=== PATIENT | male | born 1940 | race Caucasian/White ===

== ENCOUNTER 2025-04-02 16:49 | Emergency (ER) | payer MEDICARE, MEDICAID, SELFPAY ==
[2025-04-02] VITALS (12 sets, daily range): BP systolic 83–163; BP diastolic 57–91; PULSE 68; O2SAT 94–98; BMI 23.0
--- NOTE | 2025-04-02 16:54 | CT_ITS ---
The [address] [address] Patient Name: SHIRIN QUINONES MRN: [id number] date: 1940 Sex: M Assigned Patient Location: ED.MAIN Current Patient Location: ED.MAIN Accession/Order Number: [id number] Exam Date: 04/02/2025 17:05 Report Date: 04/02/2025 17:49 At the request of: ODNALD GOMEZ MD Procedure: CT cervical spine wo con CT head/brain wo con, CT facial bones wo con, CT cervical spine wo con 04/02/2025 5:27 PM SIGNS AND SYMPTOMS: Fall with laceration to chin, bleeding from right ear TECHNIQUE:Multi-detector CT axial slices of the brain, facial bones, and cervical spine were obtained without IV contrast. Helical,sagittal, coronal, and 3-D reconstructions of the facial bones and cervical spine were performed. CT was performed with one or more of the following dose reduction techniques: Automated exposure control, adjustment of the mA and/or kV according to patient size, or use of iterative reconstruction technique. COMPARISON: 06/25/2022 FINDINGS: Noncontrast head CT: There is no shift of the midline structures, acute intracranial bleeding, mass effects, or evidence of acute ischemia. Atherosclerotic changes are noted in the intracranial segments of the internal carotid arteries. There is diffuse age-related cortical atrophy. Periventricular white matter hypoattenuation is noted. 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 Gliosis and encephalomalacia is noted at the base of the left temporal lobe. The ventricular system is normal in size. The brainstem and the cerebellum are unremarkable. The visualized intraorbital contents and the infratemporal soft tissues show no acute abnormality. The osseous structures in the skull base and the calvarium show no abnormality. CT FACIAL BONES: Fracture: There is a minimally displaced intra-articular fracture of the ramus of the right mandibular condyle. Tiny fracture fragments are noted separate from the anterior margin of the bony portion of the external auditory canal laterally. Blood or cerumen opacifying the bony and cartilaginous portions of the right external auditory canal. Paranasal sinuses and mastoids: Mucosal thickening is noted in the right maxillary sinus, within the ethmoid air cells, and to a lesser extent the maxillary sinuses. Soft tissue swelling: Mild soft tissue swelling is noted along the chin. Globes: Intact. Upper aerodigestive tract: Within normal limits. Joints: Intact. Temporal mandibular joints: Intact. Infratemporal fossa: Within normal limits. Cervical spine: There is preservation of the vertebral body heights. There is mild intervertebral disc height loss at C5-C6, C6-C7, and C7-T1. There is a remote appearing type II fracture of the odontoid. No fractures or dislocations are seen. The alignment of the cervical spine is normal. The craniocervical junction is within normal limits. The prevertebral soft tissues are within normal limits. Atherosclerotic changes are noted in the carotid bifurcations. The paraspinous soft tissues are within normal limits. The lung apices are unremarkable. CT/CT facial bones wo con IMPRESSION: No acute cranial pathology. Chronic age-related neurodegenerative changes are noted as above. There is a minimally displaced intra-articular fracture of the ramus of the right mandibular condyle. Tiny fracture fragments are noted separate from the anterior margin of the bony portion of the external auditory canal laterally. Blood or cerumen opacifying the bony and cartilaginous portions of the right external auditory canal. Mild soft tissue swelling is noted along the chin. No acute cervical spine injury. There is a remote appearing type II fracture of the odontoid. The odontoid is diffuse to the anterior arch of C1. Degenerative changes are noted in the cervical spine as above. Impression dictated by: Mookie Molina M.D. 04/02/2025 5:49 PM Dictation Location: [place] [address] Electronically authenticated by: [id number] Y Date: 04/02/2025 17:49
--- NOTE | 2025-04-02 16:54 | CT_ITS ---
The [address] [address] Patient Name: SHIRIN QUINONES MRN: [id number] date: 1940 Sex: M Assigned Patient Location: ED.MAIN Current Patient Location: ED.MAIN Accession/Order Number: [id number] Exam Date: 04/02/2025 17:05 Report Date: 04/02/2025 17:49 At the request of: DONALD GOMEZ MD Procedure: CT cervical spine wo con CT head/brain wo con, CT facial bones wo con, CT cervical spine wo con 04/02/2025 5:27 PM SIGNS AND SYMPTOMS: Fall with laceration to chin, bleeding from right ear TECHNIQUE:Multi-detector CT axial slices of the brain, facial bones, and cervical spine were obtained without IV contrast. Helical,sagittal, coronal, and 3-D reconstructions of the facial bones and cervical spine were performed. CT was performed with one or more of the following dose reduction techniques: Automated exposure control, adjustment of the mA and/or kV according to patient size, or use of iterative reconstruction technique. COMPARISON: 06/25/2022 FINDINGS: Noncontrast head CT: There is no shift of the midline structures, acute intracranial bleeding, mass effects, or evidence of acute ischemia. Atherosclerotic changes are noted in the intracranial segments of the internal carotid arteries. There is diffuse age-related cortical atrophy. Periventricular white matter hypoattenuation is noted. 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 Gliosis and encephalomalacia is noted at the base of the left temporal lobe. The ventricular system is normal in size. The brainstem and the cerebellum are unremarkable. The visualized intraorbital contents and the infratemporal soft tissues show no acute abnormality. The osseous structures in the skull base and the calvarium show no abnormality. CT FACIAL BONES: Fracture: There is a minimally displaced intra-articular fracture of the ramus of the right mandibular condyle. Tiny fracture fragments are noted separate from the anterior margin of the bony portion of the external auditory canal laterally. Blood or cerumen opacifying the bony and cartilaginous portions of the right external auditory canal. Paranasal sinuses and mastoids: Mucosal thickening is noted in the right maxillary sinus, within the ethmoid air cells, and to a lesser extent the maxillary sinuses. Soft tissue swelling: Mild soft tissue swelling is noted along the chin. Globes: Intact. Upper aerodigestive tract: Within normal limits. Joints: Intact. Temporal mandibular joints: Intact. Infratemporal fossa: Within normal limits. Cervical spine: There is preservation of the vertebral body heights. There is mild intervertebral disc height loss at C5-C6, C6-C7, and C7-T1. There is a remote appearing type II fracture of the odontoid. No fractures or dislocations are seen. The alignment of the cervical spine is normal. The craniocervical junction is within normal limits. The prevertebral soft tissues are within normal limits. Atherosclerotic changes are noted in the carotid bifurcations. The paraspinous soft tissues are within normal limits. The lung apices are unremarkable. CT/CT head/brain wo con IMPRESSION: No acute cranial pathology. Chronic age-related neurodegenerative changes are noted as above. There is a minimally displaced intra-articular fracture of the ramus of the right mandibular condyle. Tiny fracture fragments are noted separate from the anterior margin of the bony portion of the external auditory canal laterally. Blood or cerumen opacifying the bony and cartilaginous portions of the right external auditory canal. Mild soft tissue swelling is noted along the chin. No acute cervical spine injury. There is a remote appearing type II fracture of the odontoid. The odontoid is diffuse to the anterior arch of C1. Degenerative changes are noted in the cervical spine as above. Impression dictated by: Mookie Molina M.D. 04/02/2025 5:49 PM Dictation Location: [place] [address] Electronically authenticated by: [id number] Y Date: 04/02/2025 17:49
--- NOTE | 2025-04-02 16:54 | CT_ITS ---
The [address] [address] Patient Name: SHIRIN QUINONES MRN: [id number] date: 1940 Sex: M Assigned Patient Location: ED.MAIN Current Patient Location: ED.MAIN Accession/Order Number: [id number] Exam Date: 04/02/2025 17:05 Report Date: 04/02/2025 17:49 At the request of: DONALD GOMEZ MD Procedure: CT cervical spine wo con CT head/brain wo con, CT facial bones wo con, CT cervical spine wo con 04/02/2025 5:27 PM SIGNS AND SYMPTOMS: Fall with laceration to chin, bleeding from right ear TECHNIQUE:Multi-detector CT axial slices of the brain, facial bones, and cervical spine were obtained without IV contrast. Helical,sagittal, coronal, and 3-D reconstructions of the facial bones and cervical spine were performed. CT was performed with one or more of the following dose reduction techniques: Automated exposure control, adjustment of the mA and/or kV according to patient size, or use of iterative reconstruction technique. COMPARISON: 06/25/2022 FINDINGS: Noncontrast head CT: There is no shift of the midline structures, acute intracranial bleeding, mass effects, or evidence of acute ischemia. Atherosclerotic changes are noted in the intracranial segments of the internal carotid arteries. There is diffuse age-related cortical atrophy. Periventricular white matter hypoattenuation is noted. 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 Gliosis and encephalomalacia is noted at the base of the left temporal lobe. The ventricular system is normal in size. The brainstem and the cerebellum are unremarkable. The visualized intraorbital contents and the infratemporal soft tissues show no acute abnormality. The osseous structures in the skull base and the calvarium show no abnormality. CT FACIAL BONES: Fracture: There is a minimally displaced intra-articular fracture of the ramus of the right mandibular condyle. Tiny fracture fragments are noted separate from the anterior margin of the bony portion of the external auditory canal laterally. Blood or cerumen opacifying the bony and cartilaginous portions of the right external auditory canal. Paranasal sinuses and mastoids: Mucosal thickening is noted in the right maxillary sinus, within the ethmoid air cells, and to a lesser extent the maxillary sinuses. Soft tissue swelling: Mild soft tissue swelling is noted along the chin. Globes: Intact. Upper aerodigestive tract: Within normal limits. Joints: Intact. Temporal mandibular joints: Intact. Infratemporal fossa: Within normal limits. Cervical spine: There is preservation of the vertebral body heights. There is mild intervertebral disc height loss at C5-C6, C6-C7, and C7-T1. There is a remote appearing type II fracture of the odontoid. No fractures or dislocations are seen. The alignment of the cervical spine is normal. The craniocervical junction is within normal limits. The prevertebral soft tissues are within normal limits. Atherosclerotic changes are noted in the carotid bifurcations. The paraspinous soft tissues are within normal limits. The lung apices are unremarkable. CT/CT cervical spine wo con IMPRESSION: No acute cranial pathology. Chronic age-related neurodegenerative changes are noted as above. There is a minimally displaced intra-articular fracture of the ramus of the right mandibular condyle. Tiny fracture fragments are noted separate from the anterior margin of the bony portion of the external auditory canal laterally. Blood or cerumen opacifying the bony and cartilaginous portions of the right external auditory canal. Mild soft tissue swelling is noted along the chin. No acute cervical spine injury. There is a remote appearing type II fracture of the odontoid. The odontoid is diffuse to the anterior arch of C1. Degenerative changes are noted in the cervical spine as above. Impression dictated by: Mookie Molina M.D. 04/02/2025 5:49 PM Dictation Location: [place] [address] Electronically authenticated by: [id number] Y Date: 04/02/2025 17:49
--- NOTE | 2025-04-02 16:56 | XR_ITS ---
The [address] [address] Patient Name: SHIRIN QUINONES MRN: [id number] date: 1940 Sex: M Assigned Patient Location: ED.MAIN Current Patient Location: ED.MAIN Accession/Order Number: [id number] Exam Date: 04/02/2025 17:05 Report Date: 04/02/2025 17:38 At the request of: DONALD GOMEZ MD Procedure: XR hand BERNARDINO 2V XR hand BERNARDINO 2V 04/02/2025 5:27 PM SIGNS AND SYMPTOMS: Fall, skin tear to left hand PROTOCOL: Frontal and lateral radiographs of the bilateral hands COMPARISON: None FINDINGS: The bones are in anatomic alignment. There is no fracture or dislocation. There is mild narrowing of the distal interphalangeal joints throughout. There is mild narrowing of the first metacarpophalangeal joint and first carpal metacarpal junction bilaterally. XR/XR hand BERNARDINO 2V IMPRESSION: No fracture or dislocation. Scattered degenerative changes are noted as above. Impression dictated by: Mookie Molina M.D. 04/02/2025 5:38 PM Dictation Location: [place] [address] Electronically authenticated by: [id number] Y Date: 04/02/2025 17:38
--- NOTE | 2025-04-02 17:07 | PC.NURSE ---
pt arrives calm and cooperative, in c-collar placed by EMS. R inner ear bleeding, laceration to chin due to witnessed fall at nursing facility. pt was trying to leave dementia unit and fell. staff with him during fall. per report, pt was uncooperative and aggravated. pt is alert to self, which is his baseline
--- NOTE | 2025-04-02 17:17 | ED.FALL1 ---
HPI HPI - Fall General Chief Complaint: Fall Stated Complaint: FALL Time Seen by Provider: 04/02/25 16:54 Source: medical record Mode of arrival: ambulance Limitations: altered mental status History of Present Illness HPI Narrative: The patient is 84-year-old male who is [facility], the patient is nonverbal and have a history of dementia, he was in close unit when he apparently had the door open and tried to get out of the door when they tried to get him back and he ran and he fell and hit the chin, as well as his right ear started bleeding, there was no loss of consciousness he has some abrasions to his hands The patient usually have a history of agitation but right now he is calm as per the EMS The ready placed him in a hard Neck collar The patient CODE STATUS according to the paperwork DNR CCA Related Data Home Medications ?Medication ?Instructions ?Recorded ?Confirmed acetaminophen 325 mg capsule 650 mg PO Q6H PRN fever or pain 04/02/25 04/02/25 acetaminophen 650 mg rectal 650 mg MT Q6H 04/02/25 04/02/25 suppository bisacodyl 10 mg rectal suppository 10 mg MT DAILY PRN constipation 04/02/25 04/02/25 cholecalciferol (vitamin D3) 125 5,000 unit PO .WEEKLY 04/02/25 04/02/25 mcg (5,000 unit) capsule docusate sodium 100 mg capsule 100 mg PO BID 04/02/25 04/02/25 lisinopril 5 mg tablet 5 mg PO DAILY 04/02/25 04/02/25 loperamide 2 mg capsule 2 mg PO Q6H PRN loose stool 04/02/25 04/02/25 magnesium hydroxide 400 mg/5 mL 30 ml PO DAILY PRN constipation 04/02/25 04/02/25 oral suspension (Milk of Magnesia) mirtazapine 15 mg tablet 15 mg PO DAILY 04/02/25 04/02/25 peg 400-propylene glycol 0.4 %-0.3 1 drp ophthalmic (eye) BID PRN dry 04/02/25 04/02/25 % eye drops (Systane Ultra) eye(s) trazodone 50 mg tablet 25 mg PO .QHS 04/02/25 04/02/25 valproic acid (as sodium salt) 250 375 mg PO TID 04/02/25 04/02/25 mg/5 mL (5 mL) oral solution Previous Rx's ?Medication ?Instructions ?Recorded amoxicillin 500 mg tablet 500 mg PO TID 10 days #30 tabs 04/02/25 Allergies Allergy/AdvReac Type Severity Reaction Status Date / Time No Known Drug Allergies Allergy Verified 04/02/25 16:55 Opioid HPI Opioid Management Most Recent Pain and Opioid Data: Last Pain Scale 3 Today, 17:01 Review of Systems ROS Status of ROS 10 or more systems reviewed and unremarkable except as noted in history and below [facility] Medical History (Updated 04/02/25 @ 18:28 by Letty Watson MD) Cognitive communication deficit ?R41.841 - Cognitive communication deficit (ICD-10) Visual hallucinations ?R44.1 - Visual hallucinations (ICD-10) Vascular dementia Dysphasia ?R47.02 - Dysphasia (ICD-10) BPH (benign prostatic hyperplasia) ?N40.0 - Benign prostatic hyperplasia without lower urinary tract symptoms (ICD-10) Traumatic subdural hemorrhage without loss of consciousness ?S06.5X0A - Traumatic subdural hemorrhage without loss of consciousness, initial encounter (ICD-10) Anxiety disorder ?F41.9 - Anxiety disorder, unspecified (ICD-10) Constipation ?K59.00 - Constipation, unspecified (ICD-10) Dry eye syndrome ?H04.129 - Dry eye syndrome of unspecified lacrimal gland (ICD-10) Hypertension ?I10 - Essential (primary) hypertension (ICD-10) Hyperlipidemia ?E78.5 - Hyperlipidemia, unspecified (ICD-10) Vitamin D deficiency ?E55.9 - Vitamin D deficiency, unspecified (ICD-10) Osteoporosis ?M81.0 - Age-related osteoporosis without current pathological fracture (ICD-10) Spondylolysis ?M43.00 - Spondylolysis, site unspecified (ICD-10) Major depressive disorder ?F32.9 - Major depressive disorder, single episode, unspecified (ICD-10) Exam Narrative Exam Narrative: Nurses notes and vital signs reviewed and patient is not hypoxic. General: Well-appearing and in no apparent distress. Skin: Warm, dry, no pallor noted. No rash. Head: Normocephalic, laceration to the chin that measuring at least 3 cm linear no exposure of the underlying structures, bleeding from the right ear external auditory canal Neck: Supple, non-tender. Eye: Pupils are equal, round and EOMI. No scleral icterus. Ears, Nose, Mouth, and Throat: External auditory canal bleeding noted and blood clot Cardiovascular: Regular Rate and Rhythm without murmur, gallop or rub. Respiratory: No accessory muscle use or respiratory distress. Lungs are clear to auscultation, no wheezing, rales or rhonchi Chest Wall: no tenderness Back: No midline thoracic or lumbar vertebral tenderness. No CVA tenderness Musculoskeletal: normal ROM, no calf or popliteal tenderness, abrasion to multiple fingers both of them are superficial on the left and right hand mostly to at the distal phalanx GI: Abdomen is soft, non-distended. Normal bowel sounds. No masses appreciated. No tenderness to palpation. No rebound, guarding, or rigidity noted. Neurological: Patient is alert nonverbal, moving upper and lower extremities sporadically Constitutional Vital Signs, click to edit/add: Last Vital Signs Pulse 68 04/02/25 16:55 Resp 16 04/02/25 16:55 BP 161/91 H 04/02/25 16:55 Pulse Ox 97 04/02/25 17:06 O2 Del Method Room Air 04/02/25 17:06 Course Vital Signs Vital signs: Vital Signs Pulse Rate 68 04/02/25 16:55 Respiratory Rate 16 04/02/25 16:55 Blood Pressure 161/91 H 04/02/25 16:55 Pulse Oximetry 97 04/02/25 16:55 Oxygen Delivery Method Room Air 04/02/25 16:55 Pulse Rate 68 04/02/25 16:55 Respiratory Rate 16 04/02/25 16:55 Blood Pressure 161/91 H 04/02/25 16:55 Pulse Oximetry 97 04/02/25 17:06 Oxygen Delivery Method Room Air 04/02/25 17:06 MDM - Fall MDM Narrative Medical decision making narrative: Patient provided with a tetanus booster He also provided with 1 g of Ancef for concern of bleeding on top of fracture The patient CT of the head showed no acute pathology CT of cervical spine shows old odontoid fracture that is healing And CT of the face showed that the patient have a right mandibular minimally displaced intra-articular fracture of the ramus of the mandibular condyle After cleaning the right ear thoroughly there was a active bleeding but there is no open laceration that could be evaluated then the patient also had a laceration to her chin that after infiltrating the area with 1% lidocaine almost 3 cc the patient had 5 sutures of 3-0 Prolene applied The patient tolerated the procedure well I did discuss his case with Dr. Lehman initially and the trauma surgeon in the [facility] and the I also discussed the case with Dr. Edwards and plastic surgery and he recommended that the patient can follow-up with outpatient with maxillofacial surgery We did speak with the guardian and he agreed on treatment----explained pt need transfer because he is not able to drink with straw and that would cause him further harm until evaluated as out pt . called [facility] and [facility] and they all didnt have maxillofacial surgery called [facility] and surgeon oncbryce recommended pt to be transferred to [facility] for acute care. Lab Data Labs: Lab Results 04/02/25 Range/Units 18:22 WBC 7.1 (4.0-11.0) 10^3/uL RBC 4.02 L (4.70-6.10) 10^6/uL Hgb 13.3 L (14.0-18.0) g/dL Hct 39.2 L (42.0-54.0) % MCV 97.5 H (80.0-94.0) fL MCH 33.1 (25.9-34.0) pg MCHC 33.9 (29.9-35.2) g/dL RDW 12.6 (11.0-15.0) % Plt Count 152 (150-450) 10^3/uL MPV 11.5 (9.5-13.5) fL Neut % (Auto) 43.8 (43.0-75.0) % Lymph % (Auto) 41.5 (20.5-60.0) % [place] % (Auto) 12.0 (1.7-12.0) % Eos % (Auto) 1.7 (0.9-7.0) % Baso % (Auto) 0.7 (0.2-2.0) % Neut # (Auto) 3.1 (1.4-6.5) 10^3/uL Lymph # (Auto) 3.0 (1.2-3.8) 10^3/uL [place] # (Auto) 0.9 H (0.3-0.8) 10^3/uL Eos # (Auto) 0.1 (0.0-0.7) 10^3/uL Baso # (Auto) 0.1 (0.0-0.1) 10^3/uL Abs Immat Gran (auto) 0.02 (0.00-0.03) 10^3/uL Imm/Tot Granulo (auto) 0.3 (0.0-0.5) % Sodium 139 (136-145) mmol/L Potassium 3.5 (3.5-5.1) mmol/L Chloride 104 (98-107) mmol/L Carbon Dioxide 27.3 (21.0-32.0) mmol/L Anion Gap 11.2 BUN 25.0 H (7.0-18.0) mg/dL Creatinine 0.69 L (0.70-1.30) mg/dL Est GFR ( Amer) >60 (>=60 mL/min/1.73m^2) Est GFR (Non-Af Amer) >60 (>=60 mL/min/1.73m^2) BUN/Creatinine Ratio 36.2 Glucose 93 (74-106) mg/dL Calcium 8.2 L (8.5-10.1) mg/dL Total Bilirubin 0.5 (0.2-1.0) mg/dL AST 23 (15-37) U/L ALT 16 (16-63) U/L Alkaline Phosphatase 76 (46-116) U/L Total Protein 6.4 (6.4-8.2) g/dL Albumin 3.1 L (3.4-5.0) g/dL Globulin 3.3 g/dL Albumin/Globulin Ratio 0.9 Discharge Plan Discharge Chief Complaint: Fall Clinical Impression: Fall, Chin laceration, Fracture of mandible, History of cervical fracture Patient Disposition: [facility] Time of Disposition Decision: 19:44 Condition: Good
--- NOTE | 2025-04-02 17:34 | PC.NURSE ---
this RN cleaned up blood off of pt's face including pt's chin laceration which is approx 4cm. pt will open his eyes spontaneously. remains in c-collar.
[2025-04-02 18:27] LABS: Hematocrit 39.2 % (42.0-54.0); Hemoglobin 13.3 g/dL (14.0-18.0); Immature Granulocytes Abs Auto 0.02 10^3/uL (0.00-0.03); Immature Granulocytes Pct Auto 0.3 % (0.0-0.5); Lymphocytes Absolute Auto 3.0 10^3/uL (1.2-3.8); Mean Corpuscular HGB Conc 33.9 g/dL (29.9-35.2); Mean Corpuscular Hemoglobin 33.1 pg (25.9-34.0); Mean Corpuscular Volume 97.5 fL (80.0-94.0); Platelet Count 152 10^3/uL (150-450); Red Blood Count 4.02 10^6/uL (4.70-6.10); White Blood Count 7.1 10^3/uL (4.0-11.0)
[2025-04-02] MEDS: LIDOCAINE/EPINEPHRINE/TETRACAINE 3 ML GEL.PF.APP 1.5 ML TOPICAL (18:30)
[2025-04-02] MEDS: LIDOCAINE HCL 1% 100 MG/10 ML MDV INJ (18:30)
[2025-04-02] MEDS: CEFAZOLIN SODIUM/DEXTROSE,ISO 1 GM/50 ML PREMIX IV (18:31)
--- NOTE | 2025-04-02 18:44 | PC.NURSE ---
cleansed L hand abrasions with NS -- dry bandage placed. cleansed R ear. IV placed and got labs.
[2025-04-02 18:45] LABS: Alanine Aminotransferase 16 U/L (16-63); Albumin Globulin Ratio 0.9; Albumin Level 3.1 g/dL (3.4-5.0); Alkaline Phosphatase 76 U/L (46-116); Anion Gap 11.2; Aspartate Amino Transferase 23 U/L (15-37); Blood Urea Nitrogen 25.0 mg/dL (7.0-18.0); Calcium 8.2 mg/dL (8.5-10.1); Carbon Dioxide 27.3 mmol/L (21.0-32.0); Chloride 104 mmol/L (98-107); Estimated GFR (African America >60 (>=60 mL/min/1.73m^2); Estimated GFR (Non-African Ame >60 (>=60 mL/min/1.73m^2); Globulin 3.3 g/dL; Glucose 93 mg/dL (74-106); Potassium 3.5 mmol/L (3.5-5.1); Sodium 139 mmol/L (136-145); Total Protein 6.4 g/dL (6.4-8.2)
[2025-04-02] MEDS: DIPHTH,PERTUSS(ACELL),TET VAC 0.5 ML SYRINGE IM (19:19)
[2025-04-02] MEDS: KETOROLAC TROMETHAMINE 30 MG/ML VIAL 15 MG IVP (19:41)
== END 2025-04-02 21:25 | disposition short-term general hospital (02) ==
PROVIDERS: Emergency Medicine; Emergency Provider Internal Medicine; PCP Family Medicine
DX: S02.641A Fracture of ramus of right mandible, initial encounter for closed fracture (principal); S01.81XA Laceration without foreign body of other part of head, initial encounter; W18.39XA Other fall on same level, initial encounter; S60.419A Abrasion of unspecified finger, initial encounter; Z23 Encounter for immunization; F03.90 Unspecified dementia, unspecified severity, without behavioral disturbance, psychotic disturbance, mood disturbance, and anxiety; S12.110D Anterior displaced Type II dens fracture, subsequent encounter for fracture with routine healing
CPT/HCPCS: 12013; 36415; 70450; 70486; 72125; 73120; 80053; 85025; 90471; 90715; 96365; 96375; 99285; J0690; J1885